=== PATIENT | female | born 1965 | race African-American/Black ===

== ENCOUNTER 2019-08-16 06:00 | Inpatient (IN) | payer MEDICAID, OTHER ==
[2019-08-16] VITALS (60 sets, daily range): BP systolic 98–152; BP diastolic 59–83
[~2019-08-16] VITALS: Ht 167.6 cm; Wt 111.6 kg
[2019-08-16] MEDS ORDERED: SUCCINYLCHOLINE CHLORIDE 200MG/10ML IV ONE ×2 (06:05→06:15)
[2019-08-16] MEDS ORDERED: ETOMIDATE 2MG/ML 10ML VIAL IV ONE ×2 (06:05→06:15)
[2019-08-16] MEDS ORDERED: NITROGLYCERIN 50MG PREMIX 250 ML IV ONE (06:11)
[2019-08-16] MEDS ORDERED: PROPOFOL 10MG/ML 100ML 100 ML IV ONE ×2 (06:15→08:22)
[2019-08-16] MEDS ORDERED: FUROSEMIDE 40MG/4ML VIAL IV ONE (06:15)
[2019-08-16 06:30] LABS: BASOPHILS % 0.9 % (0.0-2.0); EOSINOPHILS % 5.6 % (0.0-5.0); HEMATOCRIT. 37.4 % (36.0-48.0); LYMPHOCYTES % 17.5 % (20.0-50.0); MEAN CORPUSCULAR HEMOGLOBIN 27.1 pg (28.0-32.0); MEAN CORPUSCULAR VOLUME 84.8 fL (81.0-99.0); MEAN PLATELET VOLUME 9.7 fl (7.4-10.4); PLATELET 312 x1000/uL (130-400); RED BLOOD CELL COUNT 4.41 mill/uL (4.2-5.4); RED CELL DISTRIBUTION WIDTH 13.5 % (11.6-14.6)
[2019-08-16 06:33] LABS: CHLORIDE 102 mEq/L (98-107)
[2019-08-16 06:36] LABS: INR 0.9; PROTHROMBIN TIME 9.5 sec (9.6-11.0)
[2019-08-16] MEDS ORDERED: SODIUM CHLORIDE 0.9% 1,000 ML IV ONE (06:44)
[2019-08-16] MEDS ORDERED: PIPERACILLIN/TAZ 3.375G PREMIX 50 ML IV ONE (06:45)
[2019-08-16] MEDS ORDERED: LORAZEPAM 2MG/ML CPJ IV ONE (06:45)
[2019-08-16 07:09] LABS: *AMPHETAMINES SCREEN URINE NEGATIVE (NEGATIVE); *BARBITURATES SCREEN URINE NEGATIVE (NEGATIVE); *BENZODIAZEPINES SCREEN URINE NEGATIVE (NEGATIVE)
[2019-08-16 07:10] LABS: *COCAINE SCREEN URINE NEGATIVE (NEGATIVE); CANNABINOID URINE SCREEN NEGATIVE (NEGATIVE); METHADONE URINE SCREEN NEGATIVE (NEGATIVE); OPIATES URINE SCREEN PRESUMTIVE POSITIVE (NEGATIVE); PHENCYCLIDINE URINE SCREEN NEGATIVE (NEGATIVE)
[2019-08-16] MEDS ORDERED: INSULIN REGULAR (HUMULIN R) UD 100 UNITS/ML SYR SUBCUT ONE (07:15)
[2019-08-16] MEDS ORDERED: ASPIRIN 300MG SUPP PR ONE (07:30)
[2019-08-16] MEDS ORDERED: INSULIN REGULAR (HUMULIN R) 300UNITS/3ML SUBCUT ONE (07:45)
[2019-08-16 08:54] LABS: CLARITY URINE CLEAR (CLEAR); COLOR URINE YELLOW (YELLOW); KETONES URINE NEGATIVE (NEGATIVE); LEUKOCYTE ESTERASE URINE NEGATIVE (NEGATIVE); NITRITE URINE NEGATIVE (NEGATIVE); OCCULT BLOOD URINE NEGATIVE (NEGATIVE); PH URINE 6.5 (4.5-8.0); PROTEIN URINE 2+ (NEGATIVE); SPECIFIC GRAVITY URINE 1.021 (1.005-1.030); UROBILINOGEN URINE 0.2 E.U./dL (0.2-1.0)
[2019-08-16 09:34] LABS: BG BASE EXCESS -6.6 mmol/L (-2.0-2.0); BG CARBOXYHEMOGLOBIN 0.2 % (0.5-1.5); BG DEOXYHEMOGLOBIN 0.6 % (0.0-5.0); BG FRACTION INSPIRED OXYGEN 100; BG HCO3 ACT 18.8 mmol/L (22.0-26.0); BG METHEMOGLOBIN 0.3 % (0.0-1.5); BG OXYGEN SATURATION 99.4 % (92.0-98.5); BG OXYHEMOGLOBIN 98.9 % (94.0-97.0); BG PCO2 37.1 mmHg (35.0-45.0); BG PH 7.323 (7.350-7.450); BG PO2 260.2 mmHg (75.0-100.0); BG SAMPLE SITE RIGHT RADIAL; BG TIDAL VOLUME(mL) 650 mL; BG TOTAL HEMOGLOBIN 11.3 g/dL (12.0-18.0); BG VENT MODE VENT - A/C; BG VENT RATE 16 set
[2019-08-16] MEDS ORDERED: IPRATROPIUM/ALBUTEROL 0.5-3(2.5)MG/3ML NEB HHN PRN (09:45)
[2019-08-16] MEDS ORDERED: GUAIFENESIN 200MG/10ML SUGAR FREE UDC PO PRN (09:45)
[2019-08-16] MEDS ORDERED: MAGNESIUM/ALUMINUM HYDROXIDE/SIMETHICONE 30ML UDC PO PRN (09:45)
[2019-08-16] MEDS ORDERED: ONDANSETRON HCL 4MG/2ML INJ IV PRN (09:45)
[2019-08-16] MEDS ORDERED: DOCUSATE SODIUM 100MG CAPSULE PO PRN (09:45)
[2019-08-16] MEDS ORDERED: NOREPINEPHRINE 4MG/250ML PMX 250 ML IV ONE (09:45)
[2019-08-16] MEDS ORDERED: CLONIDINE 0.1MG TABLET PO PRN (09:45)
[2019-08-16] MEDS ORDERED: LORAZEPAM 2MG/ML CPJ IV PRN (09:45)
[2019-08-16] MEDS ORDERED: ACETAMINOPHEN 325MG TABLET PO PRN (09:45)
[2019-08-16] MEDS ORDERED: KETOROLAC 15MG/ML VIAL IV PRN (09:45)
[2019-08-16] MEDS ORDERED: IPRATROPIUM/ALBUTEROL 0.5-3(2.5)MG/3ML NEB HHN SCH (10:00)
[2019-08-16] MEDS ORDERED: ENOXAPARIN 40MG/0.4ML SYR SUBCUT SCH (10:30)
[2019-08-16] MEDS ORDERED: NOREPINEPHRINE 4 MG in DEXTROSE 5% WATER 250 ML IV PRN (11:30)
[2019-08-16] MEDS: PROPOFOL 10MG/ML 100ML 100 ML IV PRN ×4 (11:46→22:30)
[2019-08-16] MEDS: LEVOFLOXACIN 500MG PREMIX 100 ML IV SCH (12:00)
[2019-08-16] MEDS: CEFTRIAXONE 1 G PREMIX 50 ML IV SCH (12:05)
[2019-08-16 12:16] LABS: BG BASE EXCESS -4.6 mmol/L (-2.0-2.0); BG CARBOXYHEMOGLOBIN 0.4 % (0.5-1.5); BG DEOXYHEMOGLOBIN 0.8 % (0.0-5.0); BG FRACTION INSPIRED OXYGEN 70; BG HCO3 ACT 18.9 mmol/L (22.0-26.0); BG METHEMOGLOBIN 0.4 % (0.0-1.5); BG OXYGEN SATURATION 99.2 % (92.0-98.5); BG OXYHEMOGLOBIN 98.4 % (94.0-97.0); BG PCO2 29.9 mmHg (35.0-45.0); BG PH 7.419 (7.350-7.450); BG PO2 186.1 mmHg (75.0-100.0); BG SAMPLE SITE RIGHT RADIAL; BG TIDAL VOLUME(mL) 650 mL; BG TOTAL HEMOGLOBIN 11.1 g/dL (12.0-18.0); BG VENT MODE VENT - A/C; BG VENT RATE 20 set
[2019-08-16] MEDS: DEXT 5%/0.9% NACL KCL 20MEQ/L 1,000 ML IV SCH ×2 (13:23→22:30)
[2019-08-16] MEDS: METRONIDAZOLE 500 MG PREMIX 100 ML IV SCH ×2 (13:23→21:42)
[2019-08-16] MEDS ORDERED: DEXTROSE 50% WATER 50ML SYRINGE IV PRN (14:00)
[2019-08-16 15:01] LABS: BG BASE EXCESS -5.9 mmol/L (-2.0-2.0); BG CARBOXYHEMOGLOBIN 0.1 % (0.5-1.5); BG DEOXYHEMOGLOBIN 1.7 % (0.0-5.0); BG FRACTION INSPIRED OXYGEN 50; BG HCO3 ACT 18.6 mmol/L (22.0-26.0); BG METHEMOGLOBIN 0.3 % (0.0-1.5); BG OXYGEN SATURATION 98.3 % (92.0-98.5); BG OXYHEMOGLOBIN 97.9 % (94.0-97.0); BG PCO2 33.4 mmHg (35.0-45.0); BG PH 7.364 (7.350-7.450); BG PO2 118.3 mmHg (75.0-100.0); BG SAMPLE SITE RIGHT RADIAL; BG TIDAL VOLUME(mL) 600 mL; BG TOTAL HEMOGLOBIN 11.2 g/dL (12.0-18.0); BG VENT MODE VENT - A/C; BG VENT RATE 18 set
[2019-08-16 15:14] LABS: CREATINE KINASE MB FRACTION 2.1 ng/mL (0.5-3.6)
[2019-08-16] MEDS ORDERED: SODIUM BICARBONATE 8.4% 1 MEQ/ML 50ML SYR IV NR (16:00)
[2019-08-16] MEDS: BLOOD SUGAR DIAGNOSTIC STRIP TEST SCH ×2 (16:30→21:03)
[2019-08-16] MEDS: INSULIN LISPRO 100 UNITS/ML SUBCUT SCH ×2 (16:33→21:43)
[2019-08-16] MEDS: FUROSEMIDE 40MG/4ML VIAL IVP SCH (16:37)
[2019-08-16] MEDS: ASPIRIN 325MG EC TABLET PO SCH (16:59)
[2019-08-16] MEDS: SPIRONOLACTONE 25MG TABLET PO SCH (17:01)
[2019-08-16] MEDS: IPRATROPIUM/ALBUTEROL 0.5-3(2.5)MG/3ML NEB HHN SCH (20:55)
[2019-08-16] MEDS: ENOXAPARIN 30MG/0.3ML SYR SUBCUT SCH (21:43)
[2019-08-16] MEDS ORDERED: INSULIN GLARGINE UD 100 UNITS/ML SYR SUBCUT SCH (22:00)
[2019-08-16 23:33] LABS: CREATINE KINASE MB FRACTION 1.3 ng/mL (0.5-3.6)
[2019-08-17] VITALS (70 sets, daily range): BP systolic 79–179; BP diastolic 27–101
[2019-08-17] MEDS: IPRATROPIUM/ALBUTEROL 0.5-3(2.5)MG/3ML NEB HHN SCH ×5 (01:08→17:05)
[2019-08-17] MEDS: PROPOFOL 10MG/ML 100ML 100 ML IV PRN ×6 (02:30→18:06)
[2019-08-17] MEDS: FUROSEMIDE 40MG/4ML VIAL IVP SCH ×2 (03:57→16:02)
[2019-08-17] MEDS: METRONIDAZOLE 500 MG PREMIX 100 ML IV SCH ×2 (04:01→12:41)
[2019-08-17 05:22] LABS: BASOPHILS % 0.7 % (0.0-2.0); EOSINOPHILS % 3.4 % (0.0-5.0); HEMATOCRIT. 33.6 % (36.0-48.0); HEMOGLOBIN. 10.8 g/dL (12.0-16.0); LYMPHOCYTES % 8.2 % (20.0-50.0); MEAN CORPUSCULAR HEMOGLOBIN 27.2 pg (28.0-32.0); MEAN CORPUSCULAR VOLUME 84.5 fL (81.0-99.0); MONOCYTES % 10.9 % (2.0-8.0); NEUTROPHILS % 76.8 % (40.0-76.0); RED BLOOD CELL COUNT 3.98 mill/uL (4.2-5.4); RED CELL DISTRIBUTION WIDTH 13.7 % (11.6-14.6)
[2019-08-17 05:26] LABS: CHLORIDE 112 mEq/L (98-107)
[2019-08-17] MEDS: INSULIN LISPRO 100 UNITS/ML SUBCUT SCH ×3 (06:00→16:50)
[2019-08-17] MEDS: BLOOD SUGAR DIAGNOSTIC STRIP TEST SCH ×3 (06:00→16:30)
[2019-08-17] MEDS: SPIRONOLACTONE 25MG TABLET PO SCH ×2 (06:03→18:00)
[2019-08-17] MEDS: DEXT 5%/0.9% NACL KCL 20MEQ/L 1,000 ML IV SCH ×2 (06:04→13:35)
[2019-08-17] MEDS: ASPIRIN 325MG EC TABLET PO SCH (08:12)
[2019-08-17 08:24] LABS: BG BASE EXCESS -6.5 mmol/L (-2.0-2.0); BG CARBOXYHEMOGLOBIN 0.3 % (0.5-1.5); BG DEOXYHEMOGLOBIN 1.8 % (0.0-5.0); BG FRACTION INSPIRED OXYGEN 50; BG HCO3 ACT 17.4 mmol/L (22.0-26.0); BG METHEMOGLOBIN 0.3 % (0.0-1.5); BG OXYGEN SATURATION 98.2 % (92.0-98.5); BG OXYHEMOGLOBIN 97.6 % (94.0-97.0); BG PCO2 29.8 mmHg (35.0-45.0); BG PH 7.384 (7.350-7.450); BG PO2 110.9 mmHg (75.0-100.0); BG SAMPLE SITE RIGHT RADIAL; BG TIDAL VOLUME(mL) 600 mL; BG TOTAL HEMOGLOBIN 11.9 g/dL (12.0-18.0); BG VENT MODE VENT - A/C; BG VENT RATE 18 set
[2019-08-17] MEDS: ENOXAPARIN 30MG/0.3ML SYR SUBCUT SCH (08:58)
[2019-08-17] MEDS ORDERED: PANTOPRAZOLE SODIUM 40 MG/VIAL IV SCH (09:00)
[2019-08-17] MEDS: CEFTRIAXONE 1 G PREMIX 50 ML IV SCH (10:33)
[2019-08-17] MEDS: LEVOFLOXACIN 500MG PREMIX 100 ML IV SCH (11:18)
== END 2019-08-17 18:10 | disposition short-term general hospital (02) | DRG 871 ==
LOC: ER 06:19 → MICUNO 07:36 → EDBEDREQ 07:40 → EDBEDREQTM 07:40 → ENRESERV 08:14
PROVIDERS: ADMIT Internal Medicine; ATTEND Internal Medicine
PROC: 0BH17EZ Insertion of Endotracheal Airway into Trachea, Via Natural or Artificial Opening (ICD-10-PCS; principal; 2019-08-16)
PROC: 5A1935Z Respiratory Ventilation, Less than 24 Consecutive Hours (ICD-10-PCS; 2019-08-16)
DX: A41.9 Sepsis, unspecified organism (principal); I21.4 Non-ST elevation (NSTEMI) myocardial infarction; J96.01 Acute respiratory failure with hypoxia; J69.0 Pneumonitis due to inhalation of food and vomit; G92 Toxic encephalopathy; E44.1 Mild protein-calorie malnutrition; E87.1 Hypo-osmolality and hyponatremia; I50.40 Unspecified combined systolic (congestive) and diastolic (congestive) heart failure; I13.0 Hypertensive heart and chronic kidney disease with heart failure and stage 1 through stage 4 chronic kidney disease, or unspecified chronic kidney disease; N39.0 Urinary tract infection, site not specified; E87.2 Acidosis; E11.22 Type 2 diabetes mellitus with diabetic chronic kidney disease; E11.65 Type 2 diabetes mellitus with hyperglycemia; E83.51 Hypocalcemia; J44.9 Chronic obstructive pulmonary disease, unspecified; N18.3 Chronic kidney disease, stage 3 (moderate); E66.01 Morbid (severe) obesity due to excess calories; Z78.1 Physical restraint status; Z79.4 Long term (current) use of insulin; Z87.891 Personal history of nicotine dependence; Z87.01 Personal history of pneumonia (recurrent); Z68.39 Body mass index [BMI] 39.0-39.9, adult
CPT/HCPCS: 31500; 36415; 36600; 71045; 80048; 80061; 80305; 81003; 82375; 82550; 82553; 82805; 82962; 83036; 83605; 83880; 84478; 84484; 87070; 93005; 93306; 93970; 94002; 94003; 94640; 99291; C9113; J0330; J0696; J1650; J1815; J1940; J1956; J2060; J2543; J2704; J3490; J7620; A4315

== ENCOUNTER 2020-07-14 16:30 | Inpatient (IN) | payer OTHER ==
[~2020-07-14] VITALS: Ht 170.2 cm; Wt 89.9 kg
[2020-07-14 17:50] LABS: BASOPHILS % 0.5 % (0.0-2.0); EOSINOPHILS % 0.4 % (0.0-5.0); HEMATOCRIT. 46.1 % (36.0-48.0); HEMOGLOBIN. 14.9 g/dL (12.0-16.0); LYMPHOCYTES % 11.6 % (20.0-50.0); MEAN CORPUSCULAR HEMOGLOBIN 25.7 pg (28.0-32.0); MEAN CORPUSCULAR VOLUME 79.4 fL (81.0-99.0); MEAN PLATELET VOLUME 10.2 fl (7.4-10.4); MONOCYTES % 4.3 % (2.0-8.0); NEUTROPHILS % 83.2 % (40.0-76.0); PLATELET 279 x1000/uL (130-400); RED BLOOD CELL COUNT 5.81 mill/uL (4.2-5.4); RED CELL DISTRIBUTION WIDTH 13.6 % (11.6-14.6)
[2020-07-14 17:54] LABS: CHLORIDE 97 mEq/L (98-107)
[2020-07-14 17:56] LABS: INR 1.1; PROTHROMBIN TIME 11.4 sec (9.6-11.0)
[2020-07-14 17:58] LABS: ETHANOL BLOOD < 10 mg/dL
[2020-07-14 18:01] LABS: LDL CHOLESTEROL 83 mg/dL (5-100)
[2020-07-14 18:02] LABS: CREATINE KINASE 52 IU/L (26-192)
[2020-07-14] MEDS ORDERED: ASPIRIN 325MG EC TABLET PO ONE (19:00)
[2020-07-14] MEDS ORDERED: SODIUM CHLORIDE 0.9% 500 ML IV ONE (19:30)
[2020-07-14] MEDS ORDERED: KCL 20MEQ/100ML PREMIX 100 ML IV SCH (20:00)
[2020-07-14] MEDS ORDERED: HYDRALAZINE 20MG/ML VIAL IV PRN (23:30)
[2020-07-14] MEDS ORDERED: ACETAMINOPHEN 325MG TABLET PO PRN ×2 (23:30)
[2020-07-14] MEDS ORDERED: MAGNESIUM/ALUMINUM HYDROXIDE/SIMETHICONE 30ML UDC PO PRN (23:30)
[2020-07-14] MEDS ORDERED: DIPHENHYDRAMINE 50MG/ML VIAL IV PRN (23:30)
[2020-07-14] MEDS ORDERED: CLONIDINE 0.1MG TABLET PO PRN (23:30)
[2020-07-14] MEDS ORDERED: DEXTROSE 50% WATER 50ML SYRINGE IV PRN (23:30)
[2020-07-14] MEDS ORDERED: ENOXAPARIN 40MG/0.4ML SYR SUBCUT SCH (23:30)
[2020-07-14] MEDS ORDERED: ONDANSETRON HCL 4MG/2ML INJ IV PRN (23:30)
[2020-07-14] MEDS ORDERED: INSULIN REGULAR (HUMULIN R) UD 100 UNITS/ML SYR IV NR (23:45)
[2020-07-14] MEDS ORDERED: CARVEDILOL 12.5MG TABLET PO NR (23:45)
[2020-07-14] MEDS ORDERED: INSULIN GLARGINE UD 100 UNITS/ML SYR SUBCUT NR (23:47)
[2020-07-15] VITALS (9 sets, daily range): BP systolic 103–163; BP diastolic 57–93
[2020-07-15] MEDS ORDERED: INSULIN REGULAR (HUMULIN R) 300UNITS/3ML IV NR (00:15)
[2020-07-15] MEDS: HYDROCODONE/ACETAMINOPHEN 10/325MG TABLET PO PRN ×2 (00:25→07:32)
[2020-07-15] MEDS: SODIUM CHLORIDE 0.9% 1,000 ML IV SCH ×4 (02:04→23:33)
[2020-07-15] MEDS: BLOOD SUGAR DIAGNOSTIC STRIP TEST SCH ×4 (07:30→20:32)
[2020-07-15] MEDS: GABAPENTIN 300MG CAPSULE PO SCH ×3 (07:37→21:02)
[2020-07-15] MEDS: HYDRALAZINE HCL 50MG TABLET PO SCH ×2 (09:00→20:38)
[2020-07-15] MEDS: SPIRONOLACTONE 25MG TABLET PO SCH (09:00)
[2020-07-15] MEDS: LOSARTAN POTASSIUM 100 MG TABLET PO SCH (09:00)
[2020-07-15] MEDS: CARVEDILOL 12.5MG TABLET PO SCH ×2 (09:00→20:38)
[2020-07-15 09:05] LABS: EOSINOPHILS % 0.4 % (0.0-5.0); HEMATOCRIT. 42.1 % (36.0-48.0); HEMOGLOBIN. 13.6 g/dL (12.0-16.0); LYMPHOCYTES % 12.7 % (20.0-50.0); MEAN CORPUSCULAR HEMOGLOBIN 25.2 pg (28.0-32.0); MEAN CORPUSCULAR VOLUME 78.1 fL (81.0-99.0); MEAN PLATELET VOLUME 9.9 fl (7.4-10.4); MONOCYTES % 4.5 % (2.0-8.0); NEUTROPHILS % 81.4 % (40.0-76.0); PLATELET 252 x1000/uL (130-400); RED CELL DISTRIBUTION WIDTH 13.6 % (11.6-14.6)
[2020-07-15] MEDS ORDERED: ASPI-1158 MT (09:07)
[2020-07-15] MEDS ORDERED: FURO40TA5 MT (09:07)
[2020-07-15] MEDS ORDERED: P20 MT (09:07)
[2020-07-15] MEDS ORDERED: POTA-9 MT (09:07)
[2020-07-15] MEDS ORDERED: HYDR-4135 MT (09:07)
[2020-07-15] MEDS ORDERED: LOSA50TA41 MT (09:07)
[2020-07-15] MEDS ORDERED: TRAZ-251 MT (09:07)
[2020-07-15] MEDS ORDERED: SPIR25TA6 MT (09:07)
[2020-07-15] MEDS ORDERED: GABA-531 MT (09:07)
[2020-07-15] MEDS ORDERED: NORT50CA MT (09:07)
[2020-07-15] MEDS ORDERED: ONDA4TAB50 MT (09:07)
[2020-07-15] MEDS ORDERED: CARV25TA47 MT (09:07)
[2020-07-15] MEDS ORDERED: TIOT4MIS5 IH (09:09)
[2020-07-15] MEDS: INSULIN LISPRO 100 UNITS/ML SUBCUT SCH ×4 (09:11→20:32)
[2020-07-15 09:20] LABS: PHOSPHORUS 2.7 mg/dL (2.5-4.9)
[2020-07-15] MEDS: ASPIRIN 81MG EC TABLET PO SCH (11:07)
[2020-07-15] MEDS: INSULIN GLARGINE UD 100 UNITS/ML SYR SUBCUT SCH (11:17)
[2020-07-15] MEDS ORDERED: POTASSIUM CHLORIDE 20MEQ/PACKET PO NR (13:00)
[2020-07-15] MEDS: CLOPIDOGREL 75MG TABLET PO SCH (15:32)
[2020-07-15] MEDS ORDERED: ENOXAPARIN 40MG/0.4ML SYR SUBCUT SCH (20:00)
[2020-07-15] MEDS ORDERED: TRAZODONE HCL 50MG TABLET PO SCH (21:00)
[2020-07-16] VITALS: BP 135/76
[2020-07-16 02:00] VITALS: BP 125/71
[2020-07-16 04:00] VITALS: BP 169/104
[2020-07-16] MEDS: GABAPENTIN 300MG CAPSULE PO SCH ×2 (05:46→13:08)
[2020-07-16 06:00] VITALS: BP 158/89
[2020-07-16 06:27] LABS: BASOPHILS % 0.9 % (0.0-2.0); EOSINOPHILS % 1.8 % (0.0-5.0); HEMATOCRIT. 43.6 % (36.0-48.0); LYMPHOCYTES % 22.6 % (20.0-50.0); MEAN CORPUSCULAR HEMOGLOBIN 25.6 pg (28.0-32.0); MEAN CORPUSCULAR VOLUME 79.5 fL (81.0-99.0); MEAN PLATELET VOLUME 9.9 fl (7.4-10.4); MONOCYTES % 6.1 % (2.0-8.0); NEUTROPHILS % 68.6 % (40.0-76.0); PLATELET 258 x1000/uL (130-400); RED BLOOD CELL COUNT 5.49 mill/uL (4.2-5.4); RED CELL DISTRIBUTION WIDTH 13.6 % (11.6-14.6)
[2020-07-16] MEDS: IPRATROPIUM/ALBUTEROL 0.5-3(2.5)MG/3ML NEB HHN PRN ×2 (06:35→14:35)
[2020-07-16] MEDS: BLOOD SUGAR DIAGNOSTIC STRIP TEST SCH ×3 (06:51→18:02)
[2020-07-16] MEDS: INSULIN LISPRO 100 UNITS/ML SUBCUT SCH ×3 (07:25→18:00)
[2020-07-16] MEDS ORDERED: DEXT 5% WATER + KCL 40MEQ/L 1,000 ML IV ONE (09:00)
[2020-07-16] MEDS ORDERED: POTASSIUM CHLORIDE INJ 40 MEQ in DEXT 5% WATER 250 ML IV SCH (09:00)
[2020-07-16] MEDS: SPIRONOLACTONE 25MG TABLET PO SCH (09:05)
[2020-07-16] MEDS: HYDRALAZINE HCL 50MG TABLET PO SCH (09:05)
[2020-07-16] MEDS: CARVEDILOL 12.5MG TABLET PO SCH (09:06)
[2020-07-16] MEDS: ASPIRIN 81MG EC TABLET PO SCH (09:06)
[2020-07-16] MEDS: LOSARTAN POTASSIUM 100 MG TABLET PO SCH (09:06)
[2020-07-16] MEDS: CLOPIDOGREL 75MG TABLET PO SCH (09:06)
[2020-07-16] MEDS: SODIUM CHLORIDE 0.9% 1,000 ML IV SCH (09:07)
[2020-07-16] MEDS: INSULIN GLARGINE UD 100 UNITS/ML SYR SUBCUT SCH (10:29)
[2020-07-16] MEDS: HYDROCODONE/ACETAMINOPHEN 10/325MG TABLET PO PRN (13:08)
[2020-07-16] MEDS ORDERED: PAROXETINE HCL 10MG TABLET PO SCH (14:45)
[2020-07-16 18:21] VITALS: BP 128/34
[2020-07-16] MEDS ORDERED: ATORVASTATIN CALCIUM 40MG TABLET PO SCH (21:00)
[2020-07-16] MEDS ORDERED: GABAPENTIN 100MG CAPSULE PO SCH (22:00)
== END 2020-07-16 23:27 | disposition short-term general hospital (02) | DRG 64 ==
LOC: ER 16:30 → EDBEDREQ 18:59 → EDBEDREQTM 18:59 → EDBEDREQSVC 18:59 → MICUSO 20:49 → EDBEDREQTM 21:02 → EDBEDREQ 21:02 → ENRESERV 07-15 03:37 → 5EST 07-15 03:39
PROVIDERS: ADMIT Internal Medicine; ATTEND Internal Medicine
DX: I63.9 Cerebral infarction, unspecified (principal); E11.00 Type 2 diabetes mellitus with hyperosmolarity without nonketotic hyperglycemic-hyperosmolar coma (NKHHC); I21.4 Non-ST elevation (NSTEMI) myocardial infarction; N17.9 Acute kidney failure, unspecified; E78.5 Hyperlipidemia, unspecified; F32.9 Major depressive disorder, single episode, unspecified; I11.0 Hypertensive heart disease with heart failure; I49.3 Ventricular premature depolarization; I50.9 Heart failure, unspecified; J44.9 Chronic obstructive pulmonary disease, unspecified; Z82.49 Family history of ischemic heart disease and other diseases of the circulatory system; Z86.73 Personal history of transient ischemic attack (TIA), and cerebral infarction without residual deficits; Z87.891 Personal history of nicotine dependence
CPT/HCPCS: 36415; 70551; 71045; 80048; 80053; 80061; 80320; 82550; 82962; 83036; 83721; 83735; 84100; 84443; 84484; 85025; 93005; 93306; 93880; 93970; 94640; 97162; 97166; 97530; 99285; J0360; J1200; J1650; J1815; J3480; J7030; J7040; J7060; G0480

== ENCOUNTER 2020-12-30 19:55 | Emergency (ER) | payer MEDICAID, OTHER ==
[~2020-12-30] VITALS: Ht 165.1 cm; Wt 56.0 kg
[~2020-12-30 19:55] MED LIST: ASPI-1406 MT; CARV25TA47 MT; FURO40TA5 MT; GABA-532 MT; HYDR-4135 MT; LOSA50TA41 MT; NORT50CA MT; ONDA4TAB50 MT; P20 MT; POTA-9 MT; SPIR25TA6 MT; TIOT4MIS5 IH; TRAZ-251 MT
[2020-12-30 21:17] LABS: BASOPHILS % 0.6 % (0.0-2.0); EOSINOPHILS % 1.4 % (0.0-5.0); HEMATOCRIT. 37.9 % (36.0-48.0); HEMOGLOBIN. 12.3 g/dL (12.0-16.0); LYMPHOCYTES % 21.8 % (20.0-50.0); MEAN CORPUSCULAR VOLUME 77.2 fL (81.0-99.0); MEAN PLATELET VOLUME 8.3 fl (7.4-10.4); MONOCYTES % 6.2 % (2.0-8.0); PLATELET 296 x1000/uL (130-400); RED BLOOD CELL COUNT 4.91 mill/uL (4.2-5.4); RED CELL DISTRIBUTION WIDTH 13.8 % (11.6-14.6)
[2020-12-30 21:18] LABS: CHLORIDE 109 mEq/L (98-107)
[2020-12-30 21:19] LABS: INR 1.2; PARTIAL THROMBOPLASTIN TIME 37.1 sec (23.4-31.0); PROTHROMBIN TIME 12.1 sec (9.6-11.0)
[2020-12-30] MEDS ORDERED: ONDANSETRON HCL 4MG/2ML INJ IV STA (21:23)
[2020-12-30] MEDS ORDERED: MORPHINE SULFATE 4 MG/ML CPJ (NOT FOR IM USE) IV STA (21:23)
[2020-12-30] MEDS ORDERED: KCL 20MEQ/100ML PREMIX 100 ML IV ONE (21:45)
[2020-12-30] MEDS ORDERED: POTASSIUM CHLORIDE 20MEQ TABLET SR PO ONE (21:45)
[2020-12-30] MEDS ORDERED: IOHEXOL-350 100 ML BOTTLE ONE (22:09)
[2020-12-30] MEDS ORDERED: MAGNESIUM 2 G PREMIX 50 ML IV ONE (22:30)
[2020-12-30] MEDS ORDERED: ASPIRIN 325MG EC TABLET PO ONE (23:45)
[2020-12-30] MEDS ORDERED: AZITHROMYCIN 500 MG in DEXT 5% WATER 250 ML IV ONE (23:45)
[2020-12-30] MEDS ORDERED: CEFTRIAXONE 1 G PREMIX 50 ML IV ONE (23:45)
[2020-12-31] MEDS ORDERED: HYDROCODONE/ACETAMINOPHEN 5/325MG TABLET PO PRN (02:00)
[2020-12-31] MEDS ORDERED: ACETAMINOPHEN 325MG TABLET PO PRN (08:30)
[2020-12-31] MEDS ORDERED: ONDANSETRON HCL 4MG/2ML INJ IV PRN (08:30)
[2020-12-31 08:45] VITALS: BP 138/96
[2020-12-31] MEDS ORDERED: POTASSIUM CHLORIDE 20MEQ TABLET SR PO SCH (09:00)
[2020-12-31] MEDS ORDERED: ENOXAPARIN 40MG/0.4ML SYR SUBCUT SCH (09:00)
[2020-12-31] MEDS ORDERED: ASPIRIN 81MG TABLET PO SCH (09:00)
== END 2020-12-31 10:34 | disposition left against medical advice (07) ==
LOC: ER 19:55 → CANRESERV 12-31 08:29 → ENRESERV 12-31 08:29 → ER 12-31 10:34 → CANBEDREQ 12-31 13:03
DX: R51.9 Headache, unspecified (principal); R25.3 Fasciculation; E87.6 Hypokalemia; E83.42 Hypomagnesemia; R91.8 Other nonspecific abnormal finding of lung field; Z20.822 Contact with and (suspected) exposure to COVID-19
CPT/HCPCS: 36415; 70496; 70498; 71045; 80053; 83605; 83735; 83880; 84132; 84484; 85025; 85610; 85730; 87040; 87635; 93005; 96365; 96366; 96367; 96368; 96375; 99285; C9803; J0456; J0696; J2270; J2405; J3475; J3480; J7060; Q9967; Z7610

== ENCOUNTER 2020-12-31 23:08 | Emergency (ER) | payer OTHER ==
[~2020-12-31] VITALS: Ht 167.6 cm; Wt 72.0 kg
[2021-01-01] MEDS ORDERED: MORPHINE SULFATE 4 MG/ML CPJ (NOT FOR IM USE) IV STA (00:16)
[2021-01-01] MEDS ORDERED: ASPIRIN 325MG TABLET PO ONE (00:30)
[2021-01-01 00:36] LABS: BASOPHILS % 0.9 % (0.0-2.0); EOSINOPHILS % 1.7 % (0.0-5.0); HEMATOCRIT. 40.7 % (36.0-48.0); HEMOGLOBIN. 13.1 g/dL (12.0-16.0); LYMPHOCYTES % 16.1 % (20.0-50.0); MEAN CORPUSCULAR HEMOGLOBIN 24.5 pg (28.0-32.0); MEAN CORPUSCULAR VOLUME 76.2 fL (81.0-99.0); MEAN PLATELET VOLUME 8.2 fl (7.4-10.4); MONOCYTES % 5.2 % (2.0-8.0); NEUTROPHILS % 76.1 % (40.0-76.0); PLATELET 328 x1000/uL (130-400); RED BLOOD CELL COUNT 5.34 mill/uL (4.2-5.4); RED CELL DISTRIBUTION WIDTH 14.1 % (11.6-14.6)
[2021-01-01 00:43] LABS: CHLORIDE 109 mEq/L (98-107)
[2021-01-01 00:49] LABS: INR 1.1; PROTHROMBIN TIME 11.2 sec (9.6-11.0)
[2021-01-01] MEDS ORDERED: FUROSEMIDE 40MG TABLET PO NR (02:00)
[2021-01-01] MEDS ORDERED: LABETALOL 5MG/ML SYR 20 MG/4 ML SYRINGE IV ONE (04:45)
[2021-01-01 08:38] VITALS: BP 146/65
== END 2021-01-01 09:01 | disposition short-term general hospital (02) ==
LOC: ER 23:08
DX: I60.9 Nontraumatic subarachnoid hemorrhage, unspecified (principal); I11.0 Hypertensive heart disease with heart failure; I50.9 Heart failure, unspecified; E11.9 Type 2 diabetes mellitus without complications; J44.1 Chronic obstructive pulmonary disease with (acute) exacerbation; Z20.822 Contact with and (suspected) exposure to COVID-19; Z79.899 Other long term (current) drug therapy; Z88.6 Allergy status to analgesic agent; Z79.82 Long term (current) use of aspirin; Z93.1 Gastrostomy status
CPT/HCPCS: 36415; 71045; 80053; 83880; 84484; 85025; 85610; 87426; 93005; 96374; 96375; 99285; J2270; J3490

== ENCOUNTER 2021-04-17 14:56 | Emergency (ER) | payer MEDICAID ==
[~2021-04-17] VITALS: Ht 167.6 cm; Wt 70.0 kg
[~2021-04-17 14:56] MED LIST changes: +FLUO20CA33 PO
[2021-04-17 16:55] VITALS: BP 150/78
== END 2021-04-17 16:56 | disposition left against medical advice (07) ==
LOC: ER 14:56
DX: R07.89 Other chest pain (principal); I11.0 Hypertensive heart disease with heart failure; I50.9 Heart failure, unspecified; J44.9 Chronic obstructive pulmonary disease, unspecified; E78.00 Pure hypercholesterolemia, unspecified; G81.94 Hemiplegia, unspecified affecting left nondominant side; Z88.8 Allergy status to other drugs, medicaments and biological substances; Z79.82 Long term (current) use of aspirin
CPT/HCPCS: 99283

== ENCOUNTER 2021-06-26 18:28 | Inpatient (IN) | payer MEDICAID ==
[~2021-06-26] VITALS: Ht 172.7 cm; Wt 84.1 kg
[2021-06-26] MEDS ORDERED: METHYLPREDNISOLONE SOD SUCC 125 MG/2 ML VIAL IV STA (19:43)
[2021-06-26] MEDS ORDERED: FUROSEMIDE 40MG/4ML VIAL IV ONE (19:45)
[2021-06-26] MEDS ORDERED: AZITHROMYCIN 500 MG in DEXT 5% WATER 250 ML IV SCH ×2 (19:45→23:30)
[2021-06-26] MEDS ORDERED: CEFTRIAXONE 1 G PREMIX 50 ML IV ONE (19:45)
[2021-06-26] MEDS ORDERED: DOXYCYCLINE HYCLATE 100 MG/VIAL IV ONE (20:30)
[2021-06-26 20:35] LABS: CHLORIDE 105 mEq/L (98-107)
[2021-06-26] MEDS ORDERED: DOXYCYCLINE 100MG in DEXTROSE 5% WATER 100ML IV NR (20:36)
[2021-06-26 20:37] LABS: BASOPHILS % 0.2 % (0.0-2.0); HEMATOCRIT. 31.7 % (36.0-48.0); HEMOGLOBIN. 10.2 g/dL (12.0-16.0); LYMPHOCYTES % 10.4 % (20.0-50.0); MEAN CORPUSCULAR HEMOGLOBIN 25.4 pg (28.0-32.0); MEAN CORPUSCULAR VOLUME 79.1 fL (81.0-99.0); MEAN PLATELET VOLUME 10.2 fl (7.4-10.4); MONOCYTES % 8.1 % (2.0-8.0); NEUTROPHILS % 81.3 % (40.0-76.0); PLATELET 211 x1000/uL (130-400); RED CELL DISTRIBUTION WIDTH 14.8 % (11.6-14.6)
[2021-06-26 21:01] LABS: BG BASE EXCESS -1.5 mmol/L (-2.0-2.0); BG CARBOXYHEMOGLOBIN 0.6 % (0.5-1.5); BG DEOXYHEMOGLOBIN 0.8 % (0.0-5.0); BG FRACTION INSPIRED OXYGEN 100; BG HCO3 ACT 20.9 mmol/L (22.0-26.0); BG METHEMOGLOBIN 0.3 % (0.0-1.5); BG OXYGEN SATURATION 99.2 % (92.0-98.5); BG OXYHEMOGLOBIN 98.3 % (94.0-97.0); BG PH 7.491 (7.350-7.450); BG PO2 164.1 mmHg (75.0-100.0); BG SAMPLE SITE LEFT RADIAL; BG TOTAL HEMOGLOBIN 10.8 g/dL (12.0-18.0); BG VENT MODE MASK - NRB
[2021-06-26] MEDS ORDERED: ASPIRIN 325MG EC TABLET PO ONE (22:45)
[2021-06-26] MEDS ORDERED: NITROGLYCERIN 0.4MG TABLET SL SL PRN (23:00)
[2021-06-26] MEDS ORDERED: KETOROLAC 15MG/ML VIAL IV PRN (23:00)
[2021-06-26] MEDS ORDERED: DOCUSATE SODIUM 100MG CAPSULE PO PRN (23:00)
[2021-06-26] MEDS ORDERED: GUAIFENESIN 200MG/10ML SUGAR FREE UDC PO PRN (23:00)
[2021-06-26] MEDS ORDERED: ALBUTEROL 6.7GM HFA INHALER ORI PRN (23:00)
[2021-06-26] MEDS ORDERED: ACETAMINOPHEN 325MG TABLET PO PRN (23:00)
[2021-06-26] MEDS ORDERED: MAGNESIUM/ALUMINUM HYDROXIDE/SIMETHICONE 30ML UDC PO PRN (23:00)
[2021-06-26] MEDS ORDERED: ZOLPIDEM TARTRATE 5MG TABLET PO PRN (23:00)
[2021-06-26] MEDS ORDERED: ONDANSETRON HCL 4MG/2ML INJ IV PRN (23:00)
[2021-06-26] MEDS ORDERED: NALOXONE HCL 0.4MG/ML VIAL IV PRN (23:15)
[2021-06-26] MEDS ORDERED: POTASSIUM CHLORIDE 20MEQ TABLET SR PO NR (23:30)
[2021-06-26] MEDS: GUAIFENESIN/DM 600MG/30MG ER TAB 12HR PO SCH (23:38)
[2021-06-26 23:56] LABS: T4 FREE 1.35 ng/dL (0.76-1.46)
[2021-06-27] MEDS: DILTIAZEM HCL 60MG TABLET PO SCH ×3 (00:46→11:50)
[2021-06-27] MEDS: ENOXAPARIN 60MG/0.6ML SYR SUBCUT SCH ×3 (00:47→21:19)
[2021-06-27 01:25] LABS: FOLIC ACID (FOLATE) SERUM 16.7 ng/mL (>5.38)
[2021-06-27] MEDS: ALBUTEROL 6.7GM HFA INHALER ORI SCH (03:36)
[2021-06-27 09:00] VITALS: BP 149/71
[2021-06-27] MEDS ORDERED: ASPIRIN 325MG EC TABLET PO SCH (09:00)
[2021-06-27 09:30] VITALS: BP 149/71
[2021-06-27] MEDS: TRAMADOL 50MG TABLET PO PRN ×2 (09:57→17:16)
[2021-06-27] MEDS: DEXAMETHASONE 10 MG/ML VIAL IV SCH (09:57)
[2021-06-27] MEDS: ASCORBIC ACID 500 MG TABLET PO SCH ×2 (09:57→21:18)
[2021-06-27] MEDS: FAMOTIDINE 20MG TABLET PO SCH (09:57)
[2021-06-27] MEDS: CHOLECALCIFEROL (D3) 1000 UNIT TABLET PO SCH (09:58)
[2021-06-27] MEDS: GUAIFENESIN/DM 600MG/30MG ER TAB 12HR PO SCH ×2 (09:58→21:17)
[2021-06-27] MEDS: SPIRONOLACTONE 25MG TABLET PO SCH ×2 (09:58→21:18)
[2021-06-27] MEDS: ZINC SULFATE 220 MG ( 50 ) CAPSULE PO SCH (09:58)
[2021-06-27 12:00] VITALS: BP 138/79
[2021-06-27 13:09] LABS: BASOPHILS % 0.1 % (0.0-2.0); HEMATOCRIT. 34.8 % (36.0-48.0); HEMOGLOBIN. 11.4 g/dL (12.0-16.0); LYMPHOCYTES % 15.9 % (20.0-50.0); MEAN CORPUSCULAR HEMOGLOBIN 25.3 pg (28.0-32.0); MEAN CORPUSCULAR VOLUME 77.1 fL (81.0-99.0); MEAN PLATELET VOLUME 9.9 fl (7.4-10.4); MONOCYTES % 6.5 % (2.0-8.0); NEUTROPHILS % 77.5 % (40.0-76.0); PLATELET 241 x1000/uL (130-400); RED BLOOD CELL COUNT 4.52 mill/uL (4.2-5.4); RED CELL DISTRIBUTION WIDTH 15.1 % (11.6-14.6)
[2021-06-27 13:20] LABS: CHLORIDE 104 mEq/L (98-107); INR 1.1; PROTHROMBIN TIME 11.8 sec (9.6-11.0)
[2021-06-27 13:28] LABS: PHOSPHORUS 4.7 mg/dL (2.5-4.9)
[2021-06-27 13:30] LABS: CREATINE KINASE 43 IU/L (26-192); CREATINE KINASE MB FRACTION < 1.0 ng/mL (0.5-3.6)
[2021-06-27 13:35] LABS: LDL CHOLESTEROL 65 mg/dL (5-100)
[2021-06-27 13:37] LABS: HDL CHOLESTEROL 23 mg/dL (40-59)
[2021-06-27 16:00] VITALS: BP 128/79
[2021-06-27 20:00] VITALS: BP 137/79
[2021-06-27] MEDS ORDERED: CEFTRIAXONE 1 G PREMIX 50 ML IV SCH (21:00)
[2021-06-27] MEDS: ATORVASTATIN CALCIUM 40MG TABLET PO SCH (21:17)
[2021-06-27] MEDS: CEFTRIAXONE 1,000 MG in DEXTROSE 5% WATER 50 ML IV SCH (21:17)
[2021-06-27] MEDS: AZITHROMYCIN 500 MG in DEXT 5% WATER 250 ML IV SCH (21:17)
[2021-06-27] MEDS: METOPROLOL TARTRATE 25MG TABLET PO SCH (21:18)
[2021-06-27] MEDS: HYDRALAZINE HCL 25MG TABLET PO SCH (21:18)
[2021-06-27 22:28] LABS: CREATINE KINASE 44 IU/L (26-192)
[2021-06-27 22:31] LABS: CREATINE KINASE MB FRACTION < 1.0 ng/mL (0.5-3.6)
[2021-06-28] VITALS: BP 130/71
[2021-06-28] MEDS: ALBUTEROL 6.7GM HFA INHALER ORI SCH ×3 (00:37→20:40)
[2021-06-28] MEDS: HYDRALAZINE HCL 25MG TABLET PO SCH ×3 (06:33→22:20)
[2021-06-28 08:00] VITALS: BP 129/72
[2021-06-28] MEDS: ENOXAPARIN 60MG/0.6ML SYR SUBCUT SCH ×2 (08:22→20:40)
[2021-06-28] MEDS: FAMOTIDINE 20MG TABLET PO SCH (08:22)
[2021-06-28] MEDS: METOPROLOL TARTRATE 25MG TABLET PO SCH ×2 (08:22→20:39)
[2021-06-28] MEDS: GUAIFENESIN/DM 600MG/30MG ER TAB 12HR PO SCH ×2 (08:22→20:38)
[2021-06-28] MEDS: ASPIRIN 81MG TABLET PO SCH (08:22)
[2021-06-28] MEDS: SPIRONOLACTONE 25MG TABLET PO SCH ×2 (08:22→20:39)
[2021-06-28] MEDS: ZINC SULFATE 220 MG ( 50 ) CAPSULE PO SCH (08:22)
[2021-06-28] MEDS: ASCORBIC ACID 500 MG TABLET PO SCH ×2 (08:22→20:38)
[2021-06-28] MEDS: DEXAMETHASONE 10 MG/ML VIAL IV SCH (08:23)
[2021-06-28] MEDS: CHOLECALCIFEROL (D3) 1000 UNIT TABLET PO SCH (08:23)
[2021-06-28 12:00] VITALS: BP 138/77
[2021-06-28 16:00] VITALS: BP 159/93
[2021-06-28 20:00] VITALS: BP 180/100
[2021-06-28] MEDS: ATORVASTATIN CALCIUM 40MG TABLET PO SCH (20:38)
[2021-06-28] MEDS: AZITHROMYCIN 500 MG in DEXT 5% WATER 250 ML IV SCH (20:39)
[2021-06-28] MEDS: CEFTRIAXONE 1,000 MG in DEXTROSE 5% WATER 50 ML IV SCH (20:39)
[2021-06-29] VITALS (87 sets, daily range): BP systolic 135–199; BP diastolic 54–114
[2021-06-29] MEDS ORDERED: NOREPINEPHRINE 32 MG in DEXT 5% WATER 218 ML IV PRN (00:45)
[2021-06-29 00:58] LABS: BG BASE EXCESS -17.1 mmol/L (-2.0-2.0); BG DEOXYHEMOGLOBIN 61.6 % (0.0-5.0); BG FRACTION INSPIRED OXYGEN 100; BG HCO3 ACT 13.3 mmol/L (22.0-26.0); BG METHEMOGLOBIN 0.3 % (0.0-1.5); BG OXYGEN SATURATION 38.2 % (92.0-98.5); BG OXYHEMOGLOBIN 38.1 % (94.0-97.0); BG PCO2 52.7 mmHg (35.0-45.0); BG PH 7.021 (7.350-7.450); BG SAMPLE SITE RIGHT FEMORAL; BG TOTAL HEMOGLOBIN 10.1 g/dL (12.0-18.0); BG VENT MODE VENT - AC
[2021-06-29 02:33] LABS: BG BASE EXCESS -15.1 mmol/L (-2.0-2.0); BG CARBOXYHEMOGLOBIN 0.3 % (0.5-1.5); BG DEOXYHEMOGLOBIN 5.1 % (0.0-5.0); BG FRACTION INSPIRED OXYGEN 100; BG HCO3 ACT 13.6 mmol/L (22.0-26.0); BG METHEMOGLOBIN 0.3 % (0.0-1.5); BG OXYGEN SATURATION 94.9 % (92.0-98.5); BG OXYHEMOGLOBIN 94.3 % (94.0-97.0); BG PCO2 42.7 mmHg (35.0-45.0); BG PH 7.121 (7.350-7.450); BG PO2 101.3 mmHg (75.0-100.0); BG SAMPLE SITE RIGHT BRACHIAL; BG TOTAL HEMOGLOBIN 11.9 g/dL (12.0-18.0); BG VENT MODE VENT - AC
[2021-06-29] MEDS: ALBUTEROL 6.7GM HFA INHALER ORI SCH (03:00)
[2021-06-29] MEDS ORDERED: SODIUM BICARBONATE 8.4% 1 MEQ/ML 50ML SYR IV NR (03:00)
[2021-06-29] MEDS: HYDRALAZINE HCL 25MG TABLET PO SCH ×3 (05:00→21:22)
[2021-06-29 08:07] LABS: BG BASE EXCESS 0.9 mmol/L (-2.0-2.0); BG CARBOXYHEMOGLOBIN 0.3 % (0.5-1.5); BG DEOXYHEMOGLOBIN 1.9 % (0.0-5.0); BG HCO3 ACT 23.6 mmol/L (22.0-26.0); BG METHEMOGLOBIN 0.3 % (0.0-1.5); BG OXYGEN SATURATION 98.1 % (92.0-98.5); BG OXYHEMOGLOBIN 97.5 % (94.0-97.0); BG PCO2 31.6 mmHg (35.0-45.0); BG PH 7.492 (7.350-7.450); BG PO2 118.4 mmHg (75.0-100.0); BG SAMPLE SITE RIGHT BRACHIAL; BG TOTAL HEMOGLOBIN 11.3 g/dL (12.0-18.0); BG VENT MODE VENT - AC
[2021-06-29] MEDS ORDERED: SODIUM BICARBONATE 8.4% 1 MEQ/ML 50ML SYR IV ONE ×2 (08:10)
[2021-06-29] MEDS ORDERED: ETOMIDATE 2MG/ML 10ML VIAL IV ONE (08:10)
[2021-06-29] MEDS ORDERED: CALCIUM CHLORIDE 1GM/10ML SYR IV ONE (08:10)
[2021-06-29] MEDS ORDERED: MAGNESIUM SULFATE 4G IN WATER 100ML PREMIX IV ONE (08:10)
[2021-06-29] MEDS ORDERED: EPINEPHRINE 0.1MG/ML (1:10,000) 10ML SYR ONE ×3 (08:10)
[2021-06-29] MEDS ORDERED: SUCCINYLCHOLINE CHLORIDE 200MG/10ML IV ONE (08:10)
[2021-06-29] MEDS ORDERED: ATROPINE SULFATE 1MG/10ML SYR ONE (08:10)
[2021-06-29] MEDS ORDERED: SODIUM CHLORIDE 0.9% 10ML VIAL ONE (08:10)
[2021-06-29] MEDS ORDERED: IPRATROPIUM/ALBUTEROL 0.5-3(2.5)MG/3ML NEB HHN PRN (08:30)
[2021-06-29] MEDS: CHOLECALCIFEROL (D3) 1000 UNIT TABLET PO SCH (09:00)
[2021-06-29] MEDS: DEXAMETHASONE 10 MG/ML VIAL IV SCH (09:09)
[2021-06-29] MEDS: SPIRONOLACTONE 25MG TABLET PO SCH (09:09)
[2021-06-29] MEDS: ASCORBIC ACID 500 MG TABLET PO SCH ×2 (09:09→20:02)
[2021-06-29] MEDS: ASPIRIN 81MG TABLET PO SCH (09:09)
[2021-06-29] MEDS: PANTOPRAZOLE SODIUM 40 MG/VIAL IV SCH (09:09)
[2021-06-29] MEDS: ZINC SULFATE 220 MG ( 50 ) CAPSULE PO SCH (09:10)
[2021-06-29] MEDS: METOPROLOL TARTRATE 25MG TABLET PO SCH ×2 (09:10→20:02)
[2021-06-29] MEDS: ACETAMINOPHEN 325MG TABLET PO PRN ×2 (09:30→16:36)
[2021-06-29] MEDS: CEFEPIME 1,000 MG in DEXTROSE 5% WATER 50 ML IV SCH ×2 (09:55→22:46)
[2021-06-29] MEDS ORDERED: METRONIDAZOLE 500 MG PREMIX 100 ML IV NR (10:00)
[2021-06-29] MEDS ORDERED: LIDOCAINE HCL 1% 20ML VIAL (Pyxis) INJ ONE (10:05)
[2021-06-29 10:17] LABS: HEMATOCRIT. 32.2 % (36.0-48.0); HEMOGLOBIN. 10.5 g/dL (12.0-16.0); MEAN CORPUSCULAR HEMOGLOBIN 25.1 pg (28.0-32.0); MEAN CORPUSCULAR VOLUME 77.1 fL (81.0-99.0); PLATELET 264 x1000/uL (130-400); RED BLOOD CELL COUNT 4.18 mill/uL (4.2-5.4); RED CELL DISTRIBUTION WIDTH 14.9 % (11.6-14.6)
[2021-06-29 10:23] LABS: CHLORIDE 105 mEq/L (98-107)
[2021-06-29 10:28] LABS: INR 1.3; PROTHROMBIN TIME 13.7 sec (9.6-11.0)
[2021-06-29] MEDS: IPRATROPIUM/ALBUTEROL 0.5-3(2.5)MG/3ML NEB HHN SCH ×2 (14:46→21:11)
[2021-06-29] MEDS: CLONIDINE 0.1MG TABLET PO PRN ×2 (16:37→22:08)
[2021-06-29 18:17] LABS: PLATELET ESTIMATE NORMAL
[2021-06-29] MEDS: ATORVASTATIN CALCIUM 40MG TABLET PO SCH (20:02)
[2021-06-29] MEDS: NITROGLYCERIN OINT 1GM/INCH UDPKT TD SCH (22:46)
[2021-06-30] VITALS (93 sets, daily range): BP systolic 142–181; BP diastolic 76–114
[2021-06-30] MEDS: ACETAMINOPHEN 325MG TABLET PO PRN ×3 (00:18→20:22)
[2021-06-30] MEDS: CLONIDINE 0.2MG TABLET PO PRN ×3 (00:18→08:55)
[2021-06-30] MEDS: IPRATROPIUM/ALBUTEROL 0.5-3(2.5)MG/3ML NEB HHN SCH ×3 (01:43→20:41)
[2021-06-30 05:41] LABS: HEMATOCRIT. 28.8 % (36.0-48.0); HEMOGLOBIN. 9.6 g/dL (12.0-16.0); MEAN CORPUSCULAR HEMOGLOBIN 25.2 pg (28.0-32.0); MEAN CORPUSCULAR VOLUME 76.1 fL (81.0-99.0); MEAN PLATELET VOLUME 9.4 fl (7.4-10.4); PLATELET 244 x1000/uL (130-400); RED BLOOD CELL COUNT 3.78 mill/uL (4.2-5.4); RED CELL DISTRIBUTION WIDTH 14.6 % (11.6-14.6)
[2021-06-30] MEDS: NITROGLYCERIN OINT 1GM/INCH UDPKT TD SCH ×3 (06:26→21:58)
[2021-06-30] MEDS: HYDRALAZINE HCL 25MG TABLET PO SCH (06:26)
[2021-06-30] MEDS: DEXAMETHASONE 10 MG/ML VIAL IV SCH (08:37)
[2021-06-30] MEDS: PANTOPRAZOLE SODIUM 40 MG/VIAL IV SCH (08:43)
[2021-06-30] MEDS: CHOLECALCIFEROL (D3) 1000 UNIT TABLET PO SCH (08:43)
[2021-06-30] MEDS: ZINC SULFATE 220 MG ( 50 ) CAPSULE PO SCH (08:43)
[2021-06-30] MEDS: METOPROLOL TARTRATE 25MG TABLET PO SCH (08:44)
[2021-06-30] MEDS: ASCORBIC ACID 500 MG TABLET PO SCH ×2 (08:44→20:21)
[2021-06-30] MEDS: ASPIRIN 81MG TABLET PO SCH (08:44)
[2021-06-30] MEDS ORDERED: METOPROLOL TARTRATE 25MG TABLET PO NR (09:30)
[2021-06-30] MEDS: CEFEPIME 1,000 MG in DEXTROSE 5% WATER 50 ML IV SCH ×2 (09:35→21:58)
[2021-06-30 09:46] LABS: BG BASE EXCESS 0.4 mmol/L (-2.0-2.0); BG CARBOXYHEMOGLOBIN 0.3 % (0.5-1.5); BG FRACTION INSPIRED OXYGEN 100; BG HCO3 ACT 26.8 mmol/L (22.0-26.0); BG METHEMOGLOBIN 0.2 % (0.0-1.5); BG OXYGEN SATURATION 86.9 % (92.0-98.5); BG OXYHEMOGLOBIN 86.5 % (94.0-97.0); BG PCO2 50.2 mmHg (35.0-45.0); BG PH 7.345 (7.350-7.450); BG PO2 58.8 mmHg (75.0-100.0); BG SAMPLE SITE RIGHT BRACHIAL; BG TOTAL HEMOGLOBIN 13.5 g/dL (12.0-18.0); BG VENT MODE VENT - AC
[2021-06-30] MEDS: DEXT 5%/0.45% NACL 1000ML 1,000 ML IV SCH (11:18)
[2021-06-30] MEDS: HYDRALAZINE HCL 50MG TABLET PO SCH ×2 (13:38→21:58)
[2021-06-30 14:13] LABS: PLATELET ESTIMATE NORMAL
[2021-06-30] MEDS: ATORVASTATIN CALCIUM 40MG TABLET PO SCH (20:21)
[2021-06-30] MEDS: METOPROLOL TARTRATE 50MG TABLET PO SCH (20:21)
[2021-07-01] VITALS (71 sets, daily range): BP systolic 125–179; BP diastolic 71–98
[2021-07-01] MEDS: IPRATROPIUM/ALBUTEROL 0.5-3(2.5)MG/3ML NEB HHN SCH ×4 (00:14→20:41)
[2021-07-01] MEDS: ACETAMINOPHEN 325MG TABLET PO PRN ×2 (00:42→16:52)
[2021-07-01] MEDS: CLONIDINE 0.2MG TABLET PO PRN ×3 (01:05→16:52)
[2021-07-01] MEDS: NITROGLYCERIN OINT 1GM/INCH UDPKT TD SCH ×3 (05:09→21:10)
[2021-07-01] MEDS: HYDRALAZINE HCL 50MG TABLET PO SCH ×3 (05:09→21:10)
[2021-07-01 06:29] LABS: HEMATOCRIT. 30.7 % (36.0-48.0); HEMOGLOBIN. 9.6 g/dL (12.0-16.0); MEAN CORPUSCULAR HEMOGLOBIN 24.4 pg (28.0-32.0); MEAN PLATELET VOLUME 10.3 fl (7.4-10.4); PLATELET 243 x1000/uL (130-400); RED BLOOD CELL COUNT 3.94 mill/uL (4.2-5.4); RED CELL DISTRIBUTION WIDTH 14.7 % (11.6-14.6)
[2021-07-01] MEDS: DEXT 5%/0.45% NACL 1000ML 1,000 ML IV SCH (06:53)
[2021-07-01 07:37] LABS: BG BASE EXCESS 1.7 mmol/L (-2.0-2.0); BG CARBOXYHEMOGLOBIN 0.3 % (0.5-1.5); BG DEOXYHEMOGLOBIN 0.3 % (0.0-5.0); BG HCO3 ACT 25.3 mmol/L (22.0-26.0); BG METHEMOGLOBIN 0.5 % (0.0-1.5); BG OXYGEN SATURATION 99.7 % (92.0-98.5); BG OXYHEMOGLOBIN 98.9 % (94.0-97.0); BG PH 7.465 (7.350-7.450); BG PO2 340.4 mmHg (75.0-100.0); BG SAMPLE SITE RIGHT RADIAL; BG TOTAL HEMOGLOBIN 9.8 g/dL (12.0-18.0); BG VENT MODE VENT - AC
[2021-07-01] MEDS: CHOLECALCIFEROL (D3) 1000 UNIT TABLET PO SCH (08:54)
[2021-07-01] MEDS: ASPIRIN 81MG TABLET PO SCH (08:54)
[2021-07-01] MEDS: PANTOPRAZOLE SODIUM 40 MG/VIAL IV SCH (08:54)
[2021-07-01] MEDS: DEXAMETHASONE 10 MG/ML VIAL IV SCH (08:54)
[2021-07-01] MEDS: ZINC SULFATE 220 MG ( 50 ) CAPSULE PO SCH (08:55)
[2021-07-01] MEDS: ASCORBIC ACID 500 MG TABLET PO SCH ×2 (08:55→21:10)
[2021-07-01] MEDS: METOPROLOL TARTRATE 50MG TABLET PO SCH ×2 (08:55→21:09)
[2021-07-01] MEDS: CEFEPIME 1,000 MG in DEXTROSE 5% WATER 50 ML IV SCH ×2 (09:00→21:09)
[2021-07-01 11:11] LABS: PLATELET ESTIMATE NORMAL
[2021-07-01] MEDS ORDERED: DEXTROSE 50% WATER 50ML SYRINGE IV PRN (13:15)
[2021-07-01] MEDS: FUROSEMIDE 20MG/2ML VIAL IVP SCH (15:07)
[2021-07-01] MEDS ORDERED: BLOOD SUGAR DIAGNOSTIC STRIP TEST SCH (16:30)
[2021-07-01] MEDS ORDERED: INSULIN LISPRO 100 UNITS/ML SUBCUT SCH (17:00)
[2021-07-01] MEDS: ENOXAPARIN 60MG/0.6ML SYR SUBCUT SCH (21:09)
[2021-07-01] MEDS: ATORVASTATIN CALCIUM 40MG TABLET PO SCH (21:10)
[2021-07-01] MEDS ORDERED: FLUCONAZOLE 100 MG/50ML BAG 50 ML IV SCH (22:00)
[2021-07-02] VITALS (61 sets, daily range): BP systolic 120–160; BP diastolic 66–95
[2021-07-02] MEDS: BLOOD SUGAR DIAGNOSTIC STRIP TEST SCH ×4 (00:08→17:01)
[2021-07-02] MEDS: INSULIN LISPRO 100 UNITS/ML SUBCUT SCH ×4 (00:14→17:01)
[2021-07-02] MEDS: IPRATROPIUM/ALBUTEROL 0.5-3(2.5)MG/3ML NEB HHN SCH ×4 (01:17→20:19)
[2021-07-02] MEDS: DEXT 5%/0.45% NACL 1000ML 1,000 ML IV SCH (05:21)
[2021-07-02] MEDS: NITROGLYCERIN OINT 1GM/INCH UDPKT TD SCH ×3 (05:40→21:27)
[2021-07-02] MEDS: HYDRALAZINE HCL 50MG TABLET PO SCH ×3 (05:40→21:27)
[2021-07-02 05:45] LABS: HEMATOCRIT. 27.4 % (36.0-48.0); HEMOGLOBIN. 8.7 g/dL (12.0-16.0); MEAN CORPUSCULAR HEMOGLOBIN 24.4 pg (28.0-32.0); MEAN CORPUSCULAR VOLUME 76.9 fL (81.0-99.0); MEAN PLATELET VOLUME 9.2 fl (7.4-10.4); PLATELET 217 x1000/uL (130-400); RED BLOOD CELL COUNT 3.56 mill/uL (4.2-5.4); RED CELL DISTRIBUTION WIDTH 14.9 % (11.6-14.6)
[2021-07-02] MEDS ORDERED: SODIUM POLYSTYRENE SULFONATE 15 G/60 ML BOT PO SCH (09:00)
[2021-07-02] MEDS ORDERED: DEXTROSE 50% WATER 50ML SYRINGE IV NR (09:45)
[2021-07-02] MEDS ORDERED: INSULIN REGULAR (HUMULIN R) UD 100 UNITS/ML SYR IV ONE (09:45)
[2021-07-02] MEDS ORDERED: INSULIN REGULAR (HUMULIN R) 300UNITS/3ML VIAL IV NR (09:45)
[2021-07-02 10:28] LABS: PLATELET ESTIMATE NORMAL
[2021-07-02] MEDS: ASPIRIN 81MG TABLET PO SCH (10:41)
[2021-07-02] MEDS: ZINC SULFATE 220 MG ( 50 ) CAPSULE PO SCH (10:41)
[2021-07-02] MEDS: METOPROLOL TARTRATE 50MG TABLET PO SCH ×2 (10:41→21:27)
[2021-07-02] MEDS: CHOLECALCIFEROL (D3) 1000 UNIT TABLET PO SCH (10:41)
[2021-07-02] MEDS: ASCORBIC ACID 500 MG TABLET PO SCH ×2 (10:42→21:27)
[2021-07-02] MEDS: DEXAMETHASONE 10 MG/ML VIAL IV SCH (10:42)
[2021-07-02] MEDS: ENOXAPARIN 60MG/0.6ML SYR SUBCUT SCH (10:43)
[2021-07-02] MEDS: PANTOPRAZOLE SODIUM 40 MG/VIAL IV SCH (10:46)
[2021-07-02] MEDS: FUROSEMIDE 20MG/2ML VIAL IVP SCH (10:46)
[2021-07-02] MEDS ORDERED: SODIUM POLYSTYRENE SULFONATE 15 G/60 ML BOT PO NR (16:00)
[2021-07-02] MEDS: ATORVASTATIN CALCIUM 40MG TABLET PO SCH (21:27)
[2021-07-02] MEDS: CEFEPIME 1,000 MG in DEXTROSE 5% WATER 50 ML IV SCH (21:28)
[2021-07-02] MEDS: FLUCONAZOLE 100MG/50ML in BAG IV SCH (21:28)
[2021-07-03] VITALS (53 sets, daily range): BP systolic 129–172; BP diastolic 65–97
[2021-07-03] MEDS: DEXT 5%/0.45% NACL 1000ML 1,000 ML IV SCH ×2 (00:22→21:12)
[2021-07-03] MEDS: INSULIN LISPRO 100 UNITS/ML SUBCUT SCH ×4 (00:23→18:01)
[2021-07-03] MEDS: IPRATROPIUM/ALBUTEROL 0.5-3(2.5)MG/3ML NEB HHN SCH ×4 (02:34→21:16)
[2021-07-03 05:37] LABS: HEMOGLOBIN. 8.3 g/dL (12.0-16.0); MEAN CORPUSCULAR HEMOGLOBIN 24.4 pg (28.0-32.0); MEAN CORPUSCULAR VOLUME 76.2 fL (81.0-99.0); MEAN PLATELET VOLUME 9.1 fl (7.4-10.4); PLATELET 232 x1000/uL (130-400); RED BLOOD CELL COUNT 3.41 mill/uL (4.2-5.4); RED CELL DISTRIBUTION WIDTH 15.2 % (11.6-14.6)
[2021-07-03] MEDS: HYDRALAZINE HCL 50MG TABLET PO SCH ×3 (05:42→21:11)
[2021-07-03] MEDS: BLOOD SUGAR DIAGNOSTIC STRIP TEST SCH ×4 (05:43→17:50)
[2021-07-03] MEDS: CLONIDINE 0.2MG TABLET PO PRN (05:43)
[2021-07-03] MEDS: NITROGLYCERIN OINT 1GM/INCH UDPKT TD SCH ×3 (05:44→21:11)
[2021-07-03 05:56] LABS: PHOSPHORUS 5.6 mg/dL (2.5-4.9)
[2021-07-03] MEDS: CHOLECALCIFEROL (D3) 1000 UNIT TABLET PO SCH (08:15)
[2021-07-03] MEDS: DEXAMETHASONE 10 MG/ML VIAL IV SCH (08:15)
[2021-07-03] MEDS: ASCORBIC ACID 500 MG TABLET PO SCH ×2 (08:15→21:11)
[2021-07-03] MEDS: ENOXAPARIN 60MG/0.6ML SYR SUBCUT SCH (08:15)
[2021-07-03] MEDS: METOPROLOL TARTRATE 50MG TABLET PO SCH ×2 (08:15→21:12)
[2021-07-03] MEDS: ASPIRIN 81MG TABLET PO SCH (08:15)
[2021-07-03] MEDS: ACETAMINOPHEN 325MG TABLET PO PRN (08:16)
[2021-07-03] MEDS: FUROSEMIDE 20MG/2ML VIAL IVP SCH (08:16)
[2021-07-03] MEDS: PANTOPRAZOLE SODIUM 40 MG/VIAL IV SCH (08:18)
[2021-07-03] MEDS: ZINC SULFATE 220 MG ( 50 ) CAPSULE PO SCH (08:18)
[2021-07-03 10:24] LABS: PLATELET ESTIMATE NORMAL
[2021-07-03 11:07] LABS: BG BASE EXCESS 0.7 mmol/L (-2.0-2.0); BG CARBOXYHEMOGLOBIN 0.3 % (0.5-1.5); BG FRACTION INSPIRED OXYGEN 95; BG HCO3 ACT 25.4 mmol/L (22.0-26.0); BG METHEMOGLOBIN 0.4 % (0.0-1.5); BG OXYHEMOGLOBIN 96.3 % (94.0-97.0); BG PO2 93.9 mmHg (75.0-100.0); BG SAMPLE SITE RIGHT RADIAL; BG TOTAL HEMOGLOBIN 8.8 g/dL (12.0-18.0); BG VENT MODE VENT - AC
[2021-07-03] MEDS: CEFEPIME 1,000 MG in DEXTROSE 5% WATER 50 ML IV SCH (21:11)
[2021-07-03] MEDS: ATORVASTATIN CALCIUM 40MG TABLET PO SCH (21:11)
[2021-07-03] MEDS: FLUCONAZOLE 100MG/50ML in BAG IV SCH (21:11)
[2021-07-04] VITALS (72 sets, daily range): BP systolic 123–173; BP diastolic 64–96
[2021-07-04] MEDS: CLONIDINE 0.2MG TABLET PO PRN ×3 (00:32→18:16)
[2021-07-04] MEDS: BLOOD SUGAR DIAGNOSTIC STRIP TEST SCH ×4 (00:33→18:09)
[2021-07-04] MEDS: INSULIN LISPRO 100 UNITS/ML SUBCUT SCH ×4 (00:33→18:09)
[2021-07-04] MEDS: IPRATROPIUM/ALBUTEROL 0.5-3(2.5)MG/3ML NEB HHN SCH ×4 (00:45→20:02)
[2021-07-04 05:35] LABS: HEMATOCRIT. 24.2 % (36.0-48.0); HEMOGLOBIN. 7.7 g/dL (12.0-16.0); MEAN CORPUSCULAR HEMOGLOBIN 24.5 pg (28.0-32.0); MEAN CORPUSCULAR VOLUME 76.6 fL (81.0-99.0); MEAN PLATELET VOLUME 10.3 fl (7.4-10.4); PLATELET 232 x1000/uL (130-400); RED BLOOD CELL COUNT 3.15 mill/uL (4.2-5.4); RED CELL DISTRIBUTION WIDTH 14.7 % (11.6-14.6)
[2021-07-04 05:45] LABS: PHOSPHORUS 5.2 mg/dL (2.5-4.9)
[2021-07-04] MEDS: HYDRALAZINE HCL 50MG TABLET PO SCH (05:53)
[2021-07-04] MEDS: NITROGLYCERIN OINT 1GM/INCH UDPKT TD SCH ×3 (05:53→21:20)
[2021-07-04] MEDS: ZINC SULFATE 220 MG ( 50 ) CAPSULE PO SCH (08:38)
[2021-07-04] MEDS: PANTOPRAZOLE SODIUM 40 MG/VIAL IV SCH (08:38)
[2021-07-04] MEDS: CHOLECALCIFEROL (D3) 1000 UNIT TABLET PO SCH (08:38)
[2021-07-04] MEDS: METOPROLOL TARTRATE 50MG TABLET PO SCH (08:38)
[2021-07-04] MEDS: ASPIRIN 81MG TABLET PO SCH (08:38)
[2021-07-04] MEDS: DEXAMETHASONE 10 MG/ML VIAL IV SCH (08:38)
[2021-07-04] MEDS: ENOXAPARIN 60MG/0.6ML SYR SUBCUT SCH (08:39)
[2021-07-04] MEDS: ACETAMINOPHEN 325MG TABLET PO PRN (08:40)
[2021-07-04] MEDS: ASCORBIC ACID 500 MG TABLET PO SCH ×2 (08:40→21:20)
[2021-07-04 11:16] LABS: CLARITY URINE CLOUDY (CLEAR); COLOR URINE RED (YELLOW); KETONES URINE NEGATIVE (NEGATIVE); LEUKOCYTE ESTERASE URINE 3+ (NEGATIVE); NITRITE URINE NEGATIVE (NEGATIVE); OCCULT BLOOD URINE 3+ (NEGATIVE); PH URINE 5.5 (4.5-8.0); PROTEIN URINE 3+ (NEGATIVE); UROBILINOGEN URINE 0.2 E.U./dL (0.2-1.0)
[2021-07-04] MEDS: HYDRALAZINE HCL 25MG TABLET PO SCH ×2 (13:23→21:20)
[2021-07-04] MEDS: DEXT 5%/0.45% NACL 1000ML 1,000 ML IV SCH (15:28)
[2021-07-04 18:36] LABS: PLATELET ESTIMATE NORMAL
[2021-07-04] MEDS: FLUCONAZOLE 100MG/50ML in BAG IV SCH (21:18)
[2021-07-04] MEDS: CEFEPIME 1,000 MG in DEXTROSE 5% WATER 50 ML IV SCH (21:18)
[2021-07-04] MEDS: METOPROLOL TARTRATE 25MG TABLET PO SCH (21:19)
[2021-07-04] MEDS: ATORVASTATIN CALCIUM 40MG TABLET PO SCH (21:20)
[2021-07-05] VITALS (92 sets, daily range): BP systolic 118–177; BP diastolic 55–98
[2021-07-05] MEDS: INSULIN LISPRO 100 UNITS/ML SUBCUT SCH ×4 (00:33→17:33)
[2021-07-05] MEDS: BLOOD SUGAR DIAGNOSTIC STRIP TEST SCH ×4 (00:33→17:19)
[2021-07-05] MEDS: IPRATROPIUM/ALBUTEROL 0.5-3(2.5)MG/3ML NEB HHN SCH ×4 (03:51→22:06)
[2021-07-05 05:50] LABS: HEMATOCRIT. 23.8 % (36.0-48.0); HEMOGLOBIN. 7.6 g/dL (12.0-16.0); MEAN CORPUSCULAR HEMOGLOBIN 24.5 pg (28.0-32.0); MEAN CORPUSCULAR VOLUME 76.9 fL (81.0-99.0); MEAN PLATELET VOLUME 10.9 fl (7.4-10.4); PLATELET 239 x1000/uL (130-400); RED BLOOD CELL COUNT 3.09 mill/uL (4.2-5.4); RED CELL DISTRIBUTION WIDTH 14.8 % (11.6-14.6)
[2021-07-05 05:53] LABS: PHOSPHORUS 5.3 mg/dL (2.5-4.9)
[2021-07-05] MEDS: NITROGLYCERIN OINT 1GM/INCH UDPKT TD SCH ×3 (06:05→21:58)
[2021-07-05] MEDS: HYDRALAZINE HCL 25MG TABLET PO SCH ×3 (06:05→21:59)
[2021-07-05] MEDS ORDERED: DEXT 5%/0.9% NACL 1,000 ML IV SCH (07:15)
[2021-07-05] MEDS: SODIUM CHLORIDE 0.9% 1,000 ML IV SCH (08:48)
[2021-07-05] MEDS: PANTOPRAZOLE SODIUM 40 MG/VIAL IV SCH (08:48)
[2021-07-05] MEDS: ZINC SULFATE 220 MG ( 50 ) CAPSULE PO SCH (08:49)
[2021-07-05] MEDS: DEXAMETHASONE 10 MG/ML VIAL IV SCH (08:49)
[2021-07-05] MEDS: METOPROLOL TARTRATE 25MG TABLET PO SCH ×2 (08:49→20:47)
[2021-07-05] MEDS: ASCORBIC ACID 500 MG TABLET PO SCH ×2 (08:49→20:47)
[2021-07-05] MEDS: ASPIRIN 81MG TABLET PO SCH (08:49)
[2021-07-05] MEDS: CHOLECALCIFEROL (D3) 1000 UNIT TABLET PO SCH (08:49)
[2021-07-05 09:43] LABS: BG BASE EXCESS -3.1 mmol/L (-2.0-2.0); BG CARBOXYHEMOGLOBIN 0.3 % (0.5-1.5); BG DEOXYHEMOGLOBIN 6.2 % (0.0-5.0); BG FRACTION INSPIRED OXYGEN 75; BG HCO3 ACT 21.5 mmol/L (22.0-26.0); BG METHEMOGLOBIN 0.2 % (0.0-1.5); BG OXYGEN SATURATION 93.8 % (92.0-98.5); BG OXYHEMOGLOBIN 93.3 % (94.0-97.0); BG PCO2 36.1 mmHg (35.0-45.0); BG PH 7.392 (7.350-7.450); BG PO2 71.5 mmHg (75.0-100.0); BG SAMPLE SITE RIGHT RADIAL; BG TOTAL HEMOGLOBIN 7.7 g/dL (12.0-18.0); BG VENT MODE VENT - AC
[2021-07-05 10:40] LABS: PLATELET ESTIMATE NORMAL
[2021-07-05 16:13] LABS: BG BASE EXCESS -2.9 mmol/L (-2.0-2.0); BG CARBOXYHEMOGLOBIN 0.6 % (0.5-1.5); BG DEOXYHEMOGLOBIN 13.8 % (0.0-5.0); BG FRACTION INSPIRED OXYGEN 40; BG HCO3 ACT 21.8 mmol/L (22.0-26.0); BG METHEMOGLOBIN 0.4 % (0.0-1.5); BG OXYGEN SATURATION 86.1 % (92.0-98.5); BG OXYHEMOGLOBIN 85.2 % (94.0-97.0); BG PCO2 37.3 mmHg (35.0-45.0); BG PH 7.385 (7.350-7.450); BG PO2 54.7 mmHg (75.0-100.0); BG SAMPLE SITE RIGHT RADIAL; BG TOTAL HEMOGLOBIN 7.6 g/dL (12.0-18.0); BG VENT MODE VENT - AC
[2021-07-05] MEDS: CLONIDINE 0.2MG TABLET PO PRN (18:28)
[2021-07-05] MEDS: FLUCONAZOLE 100MG/50ML in BAG IV SCH (20:45)
[2021-07-05] MEDS: ATORVASTATIN CALCIUM 40MG TABLET PO SCH (20:47)
[2021-07-06] VITALS (53 sets, daily range): BP systolic 84–197; BP diastolic 43–135
[2021-07-06] MEDS: SODIUM CHLORIDE 0.9% 1,000 ML IV SCH (00:41)
[2021-07-06] MEDS: INSULIN LISPRO 100 UNITS/ML SUBCUT SCH ×3 (00:42→12:37)
[2021-07-06] MEDS: CLONIDINE 0.2MG TABLET PO PRN (03:29)
[2021-07-06] MEDS: NITROGLYCERIN OINT 1GM/INCH UDPKT TD SCH ×2 (05:51→14:00)
[2021-07-06] MEDS: HYDRALAZINE HCL 25MG TABLET PO SCH ×2 (05:51→14:00)
[2021-07-06 05:53] LABS: MEAN CORPUSCULAR HEMOGLOBIN 24.6 pg (28.0-32.0); MEAN CORPUSCULAR VOLUME 75.7 fL (81.0-99.0); PLATELET 249 x1000/uL (130-400); RED BLOOD CELL COUNT 2.58 mill/uL (4.2-5.4)
[2021-07-06] MEDS: BLOOD SUGAR DIAGNOSTIC STRIP TEST SCH ×3 (05:53→11:54)
[2021-07-06 06:11] LABS: PHOSPHORUS 4.9 mg/dL (2.5-4.9)
[2021-07-06 06:21] LABS: HEMATOCRIT. 19.5 % (36.0-48.0); HEMOGLOBIN. 6.3 g/dL (12.0-16.0)
[2021-07-06] MEDS ORDERED: ATROPINE SULFATE 1MG/10ML SYR ONE (08:34)
[2021-07-06] MEDS ORDERED: AMIODARONE HCL 50MG/ML 3ML VIAL IV ONE (08:34)
[2021-07-06] MEDS ORDERED: SODIUM BICARBONATE 8.4% 1 MEQ/ML 50ML SYR IV ONE (08:34)
[2021-07-06] MEDS ORDERED: CALCIUM CHLORIDE 1GM/10ML SYR IV ONE ×2 (08:34→08:36)
[2021-07-06] MEDS ORDERED: DEXTROSE 50% WATER 50ML SYRINGE IV ONE (08:34)
[2021-07-06] MEDS ORDERED: EPINEPHRINE 0.1MG/ML (1:10,000) 10ML SYR ONE ×2 (08:34→08:36)
[2021-07-06] MEDS: IPRATROPIUM/ALBUTEROL 0.5-3(2.5)MG/3ML NEB HHN SCH ×2 (08:45→14:01)
[2021-07-06] MEDS: DEXAMETHASONE 10 MG/ML VIAL IV SCH (09:28)
[2021-07-06] MEDS: CHOLECALCIFEROL (D3) 1000 UNIT TABLET PO SCH (09:29)
[2021-07-06] MEDS: ZINC SULFATE 220 MG ( 50 ) CAPSULE PO SCH (09:29)
[2021-07-06] MEDS: METOPROLOL TARTRATE 25MG TABLET PO SCH (09:29)
[2021-07-06] MEDS: ASCORBIC ACID 500 MG TABLET PO SCH (09:29)
[2021-07-06] MEDS ORDERED: PANTOPRAZOLE SODIUM 40 MG/VIAL IV SCH (09:30)
[2021-07-06 09:32] LABS: BG BASE EXCESS -3.1 mmol/L (-2.0-2.0); BG CARBOXYHEMOGLOBIN 0.4 % (0.5-1.5); BG DEOXYHEMOGLOBIN 13.2 % (0.0-5.0); BG FRACTION INSPIRED OXYGEN 50; BG HCO3 ACT 21.6 mmol/L (22.0-26.0); BG METHEMOGLOBIN 0.6 % (0.0-1.5); BG OXYGEN SATURATION 86.7 % (92.0-98.5); BG OXYHEMOGLOBIN 85.8 % (94.0-97.0); BG PCO2 36.8 mmHg (35.0-45.0); BG PH 7.386 (7.350-7.450); BG SAMPLE SITE RIGHT RADIAL; BG TOTAL HEMOGLOBIN 6.8 g/dL (12.0-18.0); BG VENT MODE VENT - AC
[2021-07-06 10:39] LABS: D-DIMER 2.32 mg/L FEU (<0.50); INR 1.2; PROTHROMBIN TIME 12.3 sec (9.6-11.0)
[2021-07-06] MEDS ORDERED: LIDOCAINE HCL 1% 20ML VIAL (Pyxis) INJ ONE (11:08)
[2021-07-06] MEDS ORDERED: HEPARIN 1000 UNITS/ML 10ML ONE (11:12)
[2021-07-06 11:17] LABS: PLATELET ESTIMATE NORMAL
[2021-07-06 11:57] LABS: HEPATITIS B SURFACE ANTIGEN NEGATIVE
[2021-07-06 12:26] LABS: HEPATITIS A AB IGM NEGATIVE (NEGATIVE)
[2021-07-06] MEDS ORDERED: DOPAMINE 400MG/250ML PREMIX 250 ML IV ONE (16:45)
[2021-07-06] MEDS ORDERED: EPINEPHRINE 10 MG in SODIUM CHLORIDE 0.9% 240 ML IV PRN (16:45)
== END 2021-07-06 18:26 | DRG 720 ==
LOC: ER 18:28 → MICUSO 22:47 → EDBEDREQ 22:54 → EDBEDREQTM 22:54 → 7WST 06-27 08:10 → MICUNO 06-29 01:41 → MICUSO 06-29 16:00 → MICUNO 07-05 02:16
PROVIDERS: ADMIT Internal Medicine; ATTEND Internal Medicine
PROC: 5A1955Z Respiratory Ventilation, Greater than 96 Consecutive Hours (ICD-10-PCS; 2021-06-28)
PROC: 0BH17EZ Insertion of Endotracheal Airway into Trachea, Via Natural or Artificial Opening (ICD-10-PCS; 2021-06-28)
PROC: 02HV33Z Insertion of Infusion Device into Superior Vena Cava, Percutaneous Approach (ICD-10-PCS; 2021-06-29)
PROC: B548ZZA Ultrasonography of Superior Vena Cava, Guidance (ICD-10-PCS; 2021-06-29)
PROC: 5A12012 Performance of Cardiac Output, Single, Manual (ICD-10-PCS; principal; 2021-07-06)
PROC: 5A2204Z Restoration of Cardiac Rhythm, Single (ICD-10-PCS; 2021-07-06)
PROC: 05HM33Z Insertion of Infusion Device into Right Internal Jugular Vein, Percutaneous Approach (ICD-10-PCS; 2021-07-06)
PROC: 30233N1 Transfusion of Nonautologous Red Blood Cells into Peripheral Vein, Percutaneous Approach (ICD-10-PCS; 2021-07-06)
PROC: 5A1D70Z Performance of Urinary Filtration, Intermittent, Less than 6 Hours Per Day (ICD-10-PCS; 2021-07-06)
DX: A41.89 Other specified sepsis (principal); I63.9 Cerebral infarction, unspecified; N17.0 Acute kidney failure with tubular necrosis; J12.82 Pneumonia due to coronavirus disease 2019; J69.0 Pneumonitis due to inhalation of food and vomit; R65.21 Severe sepsis with septic shock; U07.1 COVID-19; E44.0 Moderate protein-calorie malnutrition; G93.1 Anoxic brain damage, not elsewhere classified; I46.9 Cardiac arrest, cause unspecified; I50.43 Acute on chronic combined systolic (congestive) and diastolic (congestive) heart failure; I21.A1 Myocardial infarction type 2; E11.22 Type 2 diabetes mellitus with diabetic chronic kidney disease; E83.51 Hypocalcemia; I13.0 Hypertensive heart and chronic kidney disease with heart failure and stage 1 through stage 4 chronic kidney disease, or unspecified chronic kidney disease; D63.8 Anemia in other chronic diseases classified elsewhere; E87.6 Hypokalemia; F17.210 Nicotine dependence, cigarettes, uncomplicated; I16.0 Hypertensive urgency; J44.0 Chronic obstructive pulmonary disease with (acute) lower respiratory infection; J80 Acute respiratory distress syndrome; N39.0 Urinary tract infection, site not specified; E78.00 Pure hypercholesterolemia, unspecified; E87.5 Hyperkalemia; F32.9 Major depressive disorder, single episode, unspecified; I49.3 Ventricular premature depolarization; E78.5 Hyperlipidemia, unspecified; I42.9 Cardiomyopathy, unspecified; I49.01 Ventricular fibrillation; R31.9 Hematuria, unspecified; R74.01 Elevation of levels of liver transaminase levels; G62.9 Polyneuropathy, unspecified; N18.30 Chronic kidney disease, stage 3 unspecified; Z88.8 Allergy status to other drugs, medicaments and biological substances; Z79.84 Long term (current) use of oral hypoglycemic drugs; Z79.899 Other long term (current) drug therapy; Z68.28 Body mass index [BMI] 28.0-28.9, adult; Z82.49 Family history of ischemic heart disease and other diseases of the circulatory system; Z83.3 Family history of diabetes mellitus
CPT/HCPCS: 36415; 36556; 36600; 70551; 71045; 71250; 76770; 76937; 80048; 80053; 80061; 81003; 82375; 82550; 82553; 82607; 82728; 82746; 82805; 82962; 83036; 83540; 83550; 83605; 83615; 83735; 83880; 84100; 84145; 84439; 84443; 84484; 85025; 85379; 85384; 86705; 86709; 86803; 86850; 86900; 86920; 87070; 87077; 87186; 87340; 87426; 93005; 93970; 94002; 94003; 94640; 95816; 99291; C1725; C1752; C9113; J0282; J0330; J0456; J0461; J0692; J0696; J1100; J1265; J1450; J1644; J1650; J1815; J1940; J2930; J3475; J3490; J7030; J7040; J7050; J7060; P9016; U0003; U0005; A4315